=== PATIENT | female | born 1945 | race Asian ===

== ENCOUNTER 2018-06-15 14:51 | Emergency (ER) | payer MEDICARE, OTHER ==
[2018-06-15 15:35] LABS: ABSOLUTE BASOPHILS # (AUTO) 0.1 10^3/uL (0.0-0.2); ABSOLUTE EOSINOPHILS # (AUTO) 0.2 10^3/uL (0.0-0.6); ABSOLUTE LYMPHOCYTES (AUTO) 1.7 10^3/uL (0.5-4.7); ABSOLUTE MONOCYTES (AUTO) 0.5 10^3/uL (0.1-1.4); ABSOLUTE NEUT (AUTO) 3.8 10^3/uL (1.7-8.2); BASOPHILS % (AUTO) 0.9 % (0-2); EOSINOPHILS % (AUTO) 3.2 % (0-6); HEMATOCRIT 38.3 % (36.0-47.0); HEMOGLOBIN 12.9 g/dL (12.0-15.5); LYMPHOCYTES % (AUTO) 27.2 % (13-45); MEAN CORPUSCULAR HEMOGLOBIN 30.4 pg (27.0-33.4); MEAN CORPUSCULAR HGB CONC 33.8 g/dL (32.0-36.0); MEAN CORPUSCULAR VOLUME 90 fl (80-97); MONOCYTES % (AUTO) 7.4 % (3-13); PLATELET COUNT 192 10^3/uL (150-450); RED BLOOD COUNT 4.26 10^6/uL (3.72-5.28); RED CELL DISTRIBUTION WIDTH 12.8 % (11.5-14.0); SEGMENTED NEUTROPHILS % (AUTO) 61.3 % (42-78); TOTAL CELLS COUNTED % (AUTO) 100 %; WHITE BLOOD COUNT 6.2 10^3/uL (4.0-10.5)
[2018-06-15 15:55] LABS: ALANINE AMINOTRANSFERASE 31 U/L (9-52); ALBUMIN 4.1 g/dL (3.5-5.0); ALKALINE PHOSPHATASE 88 U/L (38-126); ANION GAP 7 (5-19); ASPARTATE AMINO TRANSFERASE 28 U/L (14-36); BILIRUBIN,DIRECT 0.1 mg/dL (0.0-0.4); BILIRUBIN,TOTAL 0.8 mg/dL (0.2-1.3); BLOOD UREA NITROGEN 13 mg/dL (7-20); CALCIUM 9.8 mg/dL (8.4-10.2); CARBON DIOXIDE 27 mmol/L (22-30); CHLORIDE 104 mmol/L (98-107); GLUCOSE 124 mg/dL (75-110); POTASSIUM 4.1 mmol/L (3.6-5.0); TOTAL PROTEIN 6.3 g/dL (6.3-8.2)
[2018-06-15 15:56] LABS: ALCOHOL < 10 mg/dL (NONE DETECTED)
[2018-06-15 15:57] LABS: ACETAMINOPHEN < 10 ug/mL (10-30); SALICYLATE < 1.0 mg/dL (2.0-20.0)
--- NOTE | 2018-06-15 16:22 | ER Document Report ---
ED Psych Disorder / Suicide <TRUDY PELAEZ - Last Filed: 06/16/18 00:36> - General Mode of Arrival: Medic Information source: Patient, Friend TRAVEL OUTSIDE OF THE [place] IN LAST 30 DAYS: No <DEDRICK TORRES - Last Filed: 06/16/18 01:06> - General Chief Complaint: Overdose Stated Complaint: POSSIBLE OVERDOSE Time Seen by Provider: 06/15/18 14:58 Notes: Patient is a 73 year old female with depression, anxiety and diabetes presents to the emergency department via EMS due to an overdose. Patient states she took 50 Ambien tablets in attempt to commit suicide. Patient is a poor historian and does not provide much history. According to nurse, patient stated took the tablets this morning and proceeded to call her son in [place] who proceeded to call the police. Nurse also states the patient reported her dying approximately 4 years ago. According to friend at bedside, she is unaware of any prior history of suicide attempts with the patient. She states the patient does take a copious amount of regular medications. (DEDRICK TORRES) - Related Data Allergies/Adverse Reactions: No Known Allergies Allergy (Verified 06/15/18 14:52) Past Medical History - General Information source: Patient - Social History Smoking Status: Unknown if Ever Smoked Family History: Reviewed & Not Pertinent Patient has suicidal ideation: No Patient has homicidal ideation: No - Past Medical History Cardiac Medical History: Reports: Hx Hypertension Pulmonary Medical History: Endocrine Medical History: Reports: Hx Diabetes Mellitus Type 2 Musculoskeletal Medical History: Reports Hx Arthritis Psychiatric Medical History: Reports: Hx Anxiety, Hx Depression <DEDRICK TORRES - Last Filed: 06/16/18 01:06> Review of Systems - Review of Systems Constitutional: No symptoms reported EENT: No symptoms reported Cardiovascular: No symptoms reported Respiratory: No symptoms reported Gastrointestinal: No symptoms reported Genitourinary: No symptoms reported Female Genitourinary: No symptoms reported Musculoskeletal: No symptoms reported Skin: No symptoms reported Neurological/Psychological: See HPI -: Yes All other systems reviewed and negative <DEDRICK TORRES - Last Filed: 06/16/18 01:06> Physical Exam <DEDRICK TORRES - Last Filed: 06/16/18 01:06> - Vital signs Vitals: Temp Resp BP Pulse Ox 98.0 F 15 120/83 97 06/15/18 15:03 06/15/18 15:03 06/15/18 15:03 06/15/18 15:03 - Notes Notes: GENERAL:Somnolent, easily awakes howevers frequently drifts to sleep. No acute distress. HEAD: Normocephalic, atraumatic. EYES: Pupils equal, round, and reactive to light. Extraocular movements intact. ENT: Oral mucosa moist, tongue midline. NECK: Full range of motion. Supple. Trachea midline. LUNGS: Clear to auscultation bilaterally, no wheezes, rales, or rhonchi. No respiratory distress. Pulse ox reads 100% on room air, good wave form per my interpretation. HEART: Regular rate and rhythm. No murmurs, gallops, or rubs. ABDOMEN: Soft, non-tender. Non-distended. Bowel sounds present in all 4 quadrants. EXTREMITIES: Moves all 4 extremities spontaneously. No edema, radial and dorsalis pedis pulses 2/4 bilaterally. No cyanosis. NEUROLOGICAL: Somnolent. Oriented to self, oriented to date, states June 2018. Is aware she is in a medical facility, however she states "clinic". PSYCH: Somnolent. SKIN: Warm, dry, normal turgor. No rashes or lesions noted. (DEDRICK TORRES) Course - Laboratory Result Diagrams: 06/15/18 15:08 06/15/18 15:08 <TRUDY PELAEZ - Last Filed: 06/16/18 00:36> - Laboratory Result Diagrams: 06/15/18 15:08 06/15/18 15:08 <DEDRICK TORRES - Last Filed: 06/16/18 01:06> - Re-evaluation Re-evalutation: 06/15/18 16:49 Spoke with son Jayden Hall after getting permission from patient, . States this is her second suicide attempt, first was when son was in 5th grade, she slit her wrists, has not had an attempt since then. Jayden states that she has not gotten a lot of treatment for her depression. Her from ALS in October of 2012, son states she has been having a hard time dealing with this. Also states that her other son is an alcoholic who lives here in [facility]. States that her other son had recently gotten a new job but today she called her son Jayden who is states that the patient said her other son had started drinking again and that she just could not deal with this anymore and that was when she told him she had taken 50 Ativan tablets at which point her son Jayden hung up the phone and called 911. 06/15/18 16:57 Patient is on 24-hour hold after discussion with behavioral health. Paperwork has been filled out and placed on the chart. Patient has been intermittently hypotensive while sleeping, when she awakens her blood pressure normalizes, patient has also been given a liter of fluid normal saline IV. 06/16/18 00:36 CBC unremarkable, CMP unremarkable, salicylates, acetaminophen and alcohol are all undetectable, EKG is nonischemic. Patient is now able to carry on a steady conversation, blood pressure is intermittently low when she lays on her side but normalizes when you would occur up. Currently patient is medically clear, pat ient will be taken off the monitor and moved to the unmonitored side of the emergency department. (TRUDY PELAEZ) 06/15/18 16:30 Contacted poison control. Agrees with management, recommends 6 hours of observation. 06/15/18 16:45 Son called and provided his phone number. Patient gives permission for us to contact him. (DEDRICK TORRES) - Vital Signs Vital signs: Temp Pulse Resp BP Pulse Ox 98.0 F 18 94/58 L 97 06/15/18 15:03 06/16/18 00:16 06/16/18 00:16 06/16/18 00:16 - Laboratory Laboratory results interpreted by me: 06/15/18 15:08 Glucose 124 H Salicylates < 1.0 L Acetaminophen < 10 L - EKG Interpretation by Me Additional EKG results interpreted by me: 06/15/18 16:56 EKG shows sinus rhythm at a rate of 61, normal axis, normal intervals, no ST segment elevations or depressions, slight T wave flattening in aVL, no T wave inversions per my interpretation. (TRUDY PELAEZ) Discharge <TRUDY PELAEZ - Last Filed: 06/16/18 00:36> <DEDRICK TORRES - Last Filed: 06/16/18 01:06> - Discharge Clinical Impression: Suicide attempt Overdose Qualifiers: Encounter type: initial encounter Injury intent: intentional self-harm Qualified Code(s): T50.902A - Poisoning by unspecified drugs, medicaments and biological substances, intentional self-harm, initial encounter Condition: Stable Disposition: PSYCH HOSP/UNIT Referrals: BARBER SORIANO MD [Primary Care Provider] - Follow up as needed Scribe Documentation - Scribe Written by Scribe:: Jomar Pride, 06/15/2018 16:32 acting as scribe for :: Maureen <DEDRICK TORRES - Last Filed: 06/16/18 01:06>
[2018-06-15] MEDS ORDERED: NORMAL SALINE 1000 ML 1,000 ML IV ONE (16:23)
--- NOTE | 2018-06-15 21:48 | EKG REPORT ---
SEVERITY:- NORMAL ECG - SINUS RHYTHM : Confirmed by: Darius Bailey MD 15-Jun-2018 21:48:14
[2018-06-16] MEDS ORDERED: GABAPENTIN 300 MG CAPSULE PO ONE ×2 (01:09→08:00)
[2018-06-16] MEDS: LISINOPRIL 5 MG TABLET PO SCH (07:34)
[2018-06-16] MEDS: LOSARTAN POTASSIUM 25 MG TABLET PO SCH (07:34)
[2018-06-16] MEDS: SITAGLIPTIN PHOSPHATE 50 MG TABLET PO SCH (10:33)
[2018-06-16] MEDS: METFORMIN HCL 500 MG TABLET PO SCH (10:33)
[2018-06-16] MEDS: SIMVASTATIN 40 MG TABLET PO SCH (10:33)
--- NOTE | 2018-06-16 18:54 | ER Document Report ---
Doctor's Note Notes: 06/16/18 18:52 The patient's chart was reviewed. Pepe Simmons with the psychology team evaluated the patient today and after a lengthy discussion with the patient, we feel that she is still a threat to herself and would benefit from an inpatient psychiatric facility management until she can be stabilized and is no longer suicidal. She will be reevaluated tomorrow to determine if she still meets inpatient psychiatric management criteria.
[2018-06-17] MEDS: LOSARTAN POTASSIUM 25 MG TABLET PO SCH (08:40)
[2018-06-17] MEDS: LISINOPRIL 5 MG TABLET PO SCH (08:40)
--- NOTE | 2018-06-17 09:52 | ER Document Report ---
Doctor's Note Notes: 06/17/18 09:50 Rounds: Chart reviewed and patient interviewed. Patient is being evaluated for having taken an overdose of reportedly 50 ambiens. Patient says that she is been depressed and suffering from anxiety. Her about 4 months ago. Patient says she is feeling much better this morning. Does not feel suicidal at this time. Vital signs are all essentially normal. Lab studies were all essentially normal. Patient appears to be medically stable for transfer or discharge. Chilango Patino MD
[2018-06-17] MEDS: SITAGLIPTIN PHOSPHATE 50 MG TABLET PO SCH (10:22)
[2018-06-17] MEDS: METFORMIN HCL 500 MG TABLET PO SCH (10:23)
[2018-06-17] MEDS: SIMVASTATIN 40 MG TABLET PO SCH (10:23)
[2018-06-17 12:00] VITALS: BP 111/51
== END 2018-06-17 12:10 ==
LOC: ER 14:51
DX: T50.902A Poisoning by unspecified drugs, medicaments and biological substances, intentional self-harm, initial encounter (principal); T42.6X2A Poisoning by other antiepileptic and sedative-hypnotic drugs, intentional self-harm, initial encounter; F32.9 Major depressive disorder, single episode, unspecified; F41.9 Anxiety disorder, unspecified; E11.9 Type 2 diabetes mellitus without complications; I10 Essential (primary) hypertension
CPT/HCPCS: 93005; 99285; 96360; 36415; 82962; 80307 ×3; 85025; 80053; 93010; A9270 ×11; J7030

== ENCOUNTER → 2019-04-17 | Outpatient (CLI) | payer MEDICARE, OTHER ==
--- NOTE | 2019-04-17 11:52 | WOMENS IMAGING REPORT ---
EXAM DESCRIPTION: 3D DX MAMMO BILAT; U/S BREAST UNILAT LIMITED COMPLETED DATE/TIME: 04/17/2019 9:08 am; 04/17/2019 9:09 am REASON FOR STUDY: RT BREAST MASS N63.10; RT BREAST US N63.10 Z12.31 ENCNTR SCREEN MAMMOGRAM FOR MAL IGNANT NEOPLASM OF TIFFANIE COMPARISON: 2009, 2010 EXAM PARAMETERS: Standard craniocaudal and mediolateral oblique views of each breast recorded using digital acquisition and breast tomosynthesis. Right breast exaggerated craniocaudad mammogram and tomosynthesis, additional right breast 90 mediol ateral mammogram. Right breast and axilla ultrasound was also performed. Read with the assistance of CAD: .[employer] - [employer] Version 9.2 LIMITATIONS: None. FINDINGS: RIGHT BREAST MASSES: In the tail of Suarez about 15 to 17 cm from the nipple right far upper outer quadrant, an 8 ill-defined mammographic mass is present 3 x 2 cm in size with partial border loss. This was subsequ ently shown at ultrasound to represent a solid hypoechoic mass with ill-defined margins and internal color flow, suspicious for malignancy. CALCIFICATIONS: No new or suspicious calcifications. ARCHITECTURAL DISTORTION: None. ASYMMETRY: None noted. OTHER: No other significant findings. LEFT BREAST MASSES: No suspicious masses. CALCIFICATIONS: No new or suspicious calcifications. ARCHITECTURAL DISTORTION: None. ASYMMETRY: None noted. OTHER: No other significant finding. Right breast and axilla ultrasound: In the far upper outer quadrant right breast 10 to 11 o'clock position, a 3 x 2 cm hypoechoic solid m ass is present with partial border loss and irregular margins. Internal color flow. There is acoust ic shadowing. This is highly suspicious for malignancy. Ultrasound-guided core biopsy, post biopsy clip placement and follow-up two-view mammogram recommended. Right axilla was examined with ultrasound. No enlarged lymph nodes are identified. IMPRESSION: No mammographic/ tomosynthesis evidence for malignancy left breast Right breast far upper outer quadrant tail of Suarez 3 x 2 cm solid mass worrisome for malignancy. U ltrasound-guided core biopsy, post biopsy clip placement and follow-up two-view mammogram recommended . BREAST DENSITY: b. There are scattered areas of fibroglandular density. BIRAD: ASSESSMENT: 5 Highly suggestive of malignancy. Biopsy should be performed in the absence of clinical contra-indication. RECOMMENDATION: RECOMMENDED FOLLOW UP: Ultrasound-guided right breast biopsy with post biopsy clip p lacement and follow-up two-view mammogram. SPECIFIC INTERVENTION/IMAGING/CONSULTATION RECOMMENDED:Ultrasound-guided right breast biopsy with pos t biopsy clip placement and follow-up two-view mammogram COMMUNICATION:Patient notified by letter. Results were not discussed with the patient at the time of service COMMENT: The patient has been notified of the results by letter per SA requirements. Additional no tification policies are in place for contacting patient with suspicious or incomplete findings. Quality ID #[id number]: The [employer] recommends an annual screening mammogram for women aged 40 years or over. This facility utilizes a reminder system to ensure that all patients receive reminder letters, and/or direct phone calls for appointments. This includes reminders for routine scr eening mammograms, diagnostic mammograms, or other Breast Imaging Interventions when appropriate. Th is patient will be placed in the appropriate reminder system. TECHNICAL DOCUMENTATION: FINDING NUMBER: (1) ASSESSMENT: (1) JOB ID: [id number] [employer]- All Rights Reserved Reading location - IP/workstation name: [email or web address]
== END ==
LOC: WI 08:10
PROVIDERS: ATTEND Physician Assistant
DX: N63.11 Unspecified lump in the right breast, upper outer quadrant (principal)
CPT/HCPCS: 76642; 77066; G0279; 77062

== ENCOUNTER 2019-05-14 08:22 | Observation (INO) | payer MEDICARE, OTHER ==
[2019-05-09 12:42] LABS: MEAN CORPUSCULAR HEMOGLOBIN 30.3 pg (27.0-33.4); MEAN CORPUSCULAR HGB CONC 34.1 g/dL (32.0-36.0); MEAN CORPUSCULAR VOLUME 89 fl (80-97); PLATELET COUNT 181 10^3/uL (150-450); RED BLOOD COUNT 4.27 10^6/uL (3.72-5.28); RED CELL DISTRIBUTION WIDTH 12.5 % (11.5-14.0)
--- NOTE | 2019-05-09 13:00 | EKG REPORT ---
SEVERITY:- NORMAL ECG - SINUS RHYTHM : Confirmed by: Lydia Modi MD 09-May-2019 13:00:27
[2019-05-09 13:15] LABS: ANION GAP 7 (5-19); BLOOD UREA NITROGEN 15 mg/dL (7-20); CALCIUM 9.7 mg/dL (8.4-10.2); CARBON DIOXIDE 31 mmol/L (22-30); CHLORIDE 102 mmol/L (98-107); GLUCOSE 108 mg/dL (75-110); POTASSIUM 4.9 mmol/L (3.6-5.0)
[~2019-05-14 08:22] MED LIST: CEFAZOLIN SODIUM 1 GM in DEXTROSE 5%-WATER 50 ML IV PRN; LACTATED RINGERS 1000 ML IV PRN
[2019-05-14] MEDS ORDERED: LIDOCAINE 4% TRANSPARENT DRESSING 5 GM KIT TP PRN (08:37)
[2019-05-14] MEDS ORDERED: LIDOCAINE 4% TRANSPARENT DRESSING 5 GM KIT ONE (09:04)
[2019-05-14] MEDS ORDERED: SUCCINYLCHOLINE CHLORIDE INJ 200 MG/10 ML VIAL ONE (12:04)
[2019-05-14] MEDS ORDERED: PROPOFOL INJ 200 MG/20 ML VIAL IV ONE (12:44)
[2019-05-14] MEDS ORDERED: FENTANYL CITRATE INJ/PF 250 MCG/5 ML AMPULE ONE (12:44)
[2019-05-14] MEDS ORDERED: ONDANSETRON HCL INJ/PF 4 MG/2 ML SDV ONE (12:44)
[2019-05-14] MEDS ORDERED: DEXAMETHASONE SOD PHOSPHATE INJ 4 MG/1 ML VIAL ONE (12:44)
[2019-05-14] MEDS ORDERED: MIDAZOLAM 2 MG/2 ML INJ ONE (12:44)
[2019-05-14] MEDS ORDERED: MICROFIBRILLAR COLLAGEN 1 GM PACK ONE (12:45)
[2019-05-14] MEDS ORDERED: LIDOCAINE 1%/EPINEPHRINE INJ 20 ML VIAL ONE (12:45)
[2019-05-14] MEDS ORDERED: METHYLENE BLUE 50 MG/10 ML AMPULE ONE (13:10)
[2019-05-14] MEDS ORDERED: FENTANYL CITRATE INJ/PF 100 MCG/2 ML AMPUL IV PRN (14:23)
[2019-05-14] MEDS ORDERED: MORPHINE SULFATE 10 MG/ML INJ IV PRN (14:23)
[2019-05-14] MEDS ORDERED: PROMETHAZINE HCL INJ 25 MG/1 ML VIAL IV PRN (14:23)
[2019-05-14] MEDS ORDERED: DIPHENHYDRAMINE HCL 50 MG/ML VIAL IV PRN (14:23)
[2019-05-14] MEDS ORDERED: MEPERIDINE HCL/PF INJ 25 MG/1 ML DISP.SYRIN IV PRN (14:23)
--- NOTE | 2019-05-14 14:53 | RADIOLOGY REPORT (SQ) ---
EXAM DESCRIPTION: NM LYMPHATICS/LYMPH GLANDS COMPLETED DATE/TIME: 05/14/2019 10:53 am REASON FOR STUDY: RT BREAST CANCER C50.911 MALIGNANT NEOPLASM OF UNSP SITE OF RIGHT FEMALE PREETHI Z79 .899 OTHER RESIDENTIAL (CURRENT) DRUG THERAPY COMPARISON: None. RADIONUCLIDE AND DOSE: 0.629 microcuries TC-99m tilmanocept - [employer]. The route of agent administration: Subcutaneous in the skin. TECHNIQUE: The skin of the right breast was prepped in sterile fashion. The radiopharmaceutical was then administered in equally divided doses in the periareolar breast. LIMITATIONS: None. FINDINGS: Images demonstrate radioactivity at the injection sites. IMPRESSION: ADMINISTRATION OF RADIOPHARMACEUTICAL FOR SENTINEL LYMPH NODE EVALUATION. TECHNICAL DOCUMENTATION: JOB ID: [id number] [employer]- All Rights Reserved Reading location - IP/workstation name: [email or web address]
[2019-05-14] MEDS ORDERED: KETOROLAC TROMETHAMINE 10 MG TABLET PO PRN (15:09)
[2019-05-14] MEDS ORDERED: OXYCODONE-ACETAMINOPHEN 5-325 MG TABLET PO PRN (15:09)
--- NOTE | 2019-05-14 15:16 | Operative Report ---
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 Bedside neoprobe assessment confirmed uptake in the right axilla consistent with successful mapping. The patient was taken to the operating room and general anesthesia was induced. Right arm was abducted, right breast exposed, and the upper outer quadrant of the areolar border was injected with 3 cc of dilute methylene blue. Breast was massaged, then the right breast and axilla were prepped and draped in sterile fashion a. Surgical plan and surgical timeout were conducted. Markings were made on the skin for planned right mastectomy. Incision was made with a #10 blade, and superior and inferior skin flaps were raised of appropriate thickness. The superior flap was taken up to the subclavicular area, medially to the parasternal musculature, and inferiorly to the serratus anterior muscle. The breast was taken off of the chest wall including the pectoralis major fascia. Edmond lymph node biopsy was now performed. 3 hot sentinel lymph nodes were removed from level 1 axilla. The first lymph node had an in vivo count of 21 396 and an ex vivo count of 9392. The second lymph node in the same vicinity had an in vivo count of 3632 and the third sentinel lymph node had an in vivo count of 9231 with an ex vivo count of 6100. Background counts were negligible. All sentinel lymph nodes were sent for permanent analysis. Hemostasis was felt to be achieved. A large Mohit drain was placed through the lateral inferior aspect of the inferior skin flap, attached to the skin with 2-0 Prolene suture, and the drain placed in the recess of the mastectomy wound. The incision was closed with multiple running 2-0 Vicryl sutures and skin glue. Sponge and needle counts are correct. Patient tolerated procedure well, extubated, taken recovery in stable condition.
[2019-05-14] MEDS ORDERED: ACETAMINOPHEN INJ/PF 1000 MG/100 ML SDV IV SCH (18:00)
[2019-05-14] MEDS: DOCUSATE SODIUM 100 MG CAPSULE PO SCH (18:23)
[2019-05-14] MEDS: ACETAMINOPHEN 1,000 MG/100 ML RTUPB IV SCH (18:24)
[2019-05-15] MEDS: ACETAMINOPHEN 1,000 MG/100 ML RTUPB IV SCH ×2 (02:22→06:46)
[2019-05-15] MEDS ORDERED: INFLUENZA QUAD (6MOS+) 2019-20 VAC 0.5 ML SYR IM ONE (07:54)
[2019-05-15] MEDS: DOCUSATE SODIUM 100 MG CAPSULE PO SCH (09:59)
--- NOTE | 2019-05-15 10:46 | PDOC DISCHARGE SUMMARY ---
General - Admit/Disc Date/PCP Admission Date/Primary Care Provider: 05/14/19 15:30 BARBER SORIANO MD Discharge Date: 05/15/19 - Discharge Diagnosis Final Diagnosis: Invasive ductal carcinoma, right breast - Assessment Summary: Patient is 74-year-old female with a right breast mass, status post core biopsy with diagnosis of infiltrating ductal carcinoma, cribriform variety. Patient was brought to ambulatory surgery for right mastectomy, sentinel node biopsy and chest wall drainage. She tolerated procedure well without complication. The following morning she was getting about well, tolerating diet, and had adequate pain control. She was felt ready for discharge home after instructions on drain management. - Additional Information Resuscitation Status: Full Code Discharge Diet: As Tolerated Discharge Activity: No Lifting Over 10 Pounds, No Lifting/Push/Pulling - Patient instructed on drain management and output recording. She is prescribed Toradol, and prescription provided. She will follow-up with [facility] in 1 week for postop check. Referrals: BARBER SORIANO MD [Primary Care Provider] - WILLARD PAREKH MD [ACTIVE STAFF] - 05/22/19 1:15 pm (PLEASE CALL THE OFFICE FOR ANY QUESTIONS OR CONCERNS.) Home Medications: Aspirin [Ecotrin 81 mg EC Tablet] 81 mg PO DAILY 10/24/12 Gabapentin [Gralise] 300 mg PO DAILY 10/24/12 Glipizide [Glocotrol 5 Mg Tablet] 5 mg PO DAILY 10/24/12 Ibuprofen [Motrin 800 Mg Tablet] 800 mg PO PRN PRN 10/24/12 Metformin HCl [Glumetza ER 500 mg Tablet] 500 mg PO BID 10/24/12 Simvastatin [Zocor 40 mg Tablet] 40 mg PO QHS 10/24/12 Lisinopril [Prinivil 5 Mg Tablet] 5 mg PO DAILY 10/29/12 History of Present Illiness History of Present Illness: MARILUZ LAUREN is a 74 year old female Physical Exam Vital Signs: Temp Pulse Resp BP Pulse Ox 97.7 F 61 16 98/46 L 98 05/15/19 07:32 05/15/19 07:32 05/15/19 07:32 05/15/19 07:32 05/15/19 07:32 Intake & Output 05/14/19 05/15/19 05/16/19 06:59 06:59 06:59 Intake Total 2250 100 Output Total 821 Balance 1429 100 Weight 83 kg Results Laboratory Results: WBC 6.0 10^3/uL (4.0-10.5) 05/09/19 11:30 RBC 4.27 10^6/uL (3.72-5.28) 05/09/19 11:30 Hgb 13.0 g/dL (12.0-15.5) 05/09/19 11:30 Hct 38.0 % (36.0-47.0) 05/09/19 11:30 MCV 89 fl (80-97) 05/09/19 11:30 MCH 30.3 pg (27.0-33.4) 05/09/19 11:30 MCHC 34.1 g/dL (32.0-36.0) 05/09/19 11:30 RDW 12.5 % (11.5-14.0) 05/09/19 11:30 Plt Count 181 10^3/uL (150-450) 05/09/19 11:30 Sodium 140.0 mmol/L (137-145) 05/09/19 11:30 Potassium 4.9 mmol/L (3.6-5.0) 05/09/19 11:30 Chloride 102 mmol/L (98-107) 05/09/19 11:30 Carbon Dioxide 31 mmol/L (22-30) H 05/09/19 11:30 Anion Gap 7 (5-19) 05/09/19 11:30 BUN 15 mg/dL (7-20) 05/09/19 11:30 Creatinine 0.81 mg/dL (0.52-1.25) 05/09/19 11:30 Est GFR ( Amer) > 60 (>60) 05/09/19 11:30 Est GFR (MDRD) Non-Af > 60 (>60) 05/09/19 11:30 Glucose 108 mg/dL (75-110) 05/09/19 11:30 POC Glucose 88 mg/dL (70-110) 05/14/19 10:46 Calcium 9.7 mg/dL (8.4-10.2) 05/09/19 11:30 Impressions: Lymph Scan Nuclear Medicine 05/14/19 00:00 IMPRESSION: ADMINISTRATION OF RADIOPHARMACEUTICAL FOR SENTINEL LYMPH NODE EVALUATION.
[2019-05-15 10:52] VITALS: BP 140/59
== END 2019-05-15 11:10 | disposition home or self-care (01) ==
LOC: OROUT 08:22 → 2N 15:30
PROVIDERS: ADMIT Surgery; ATTEND Surgery
DX: C50.411 Malignant neoplasm of upper-outer quadrant of right female breast (principal); C50.111 Malignant neoplasm of central portion of right female breast; Z17.0 Estrogen receptor positive status [ER+]; E11.9 Type 2 diabetes mellitus without complications; I10 Essential (primary) hypertension; E78.00 Pure hypercholesterolemia, unspecified; Z79.899 Other long term (current) drug therapy; Z79.82 Long term (current) use of aspirin; Z01.818 Encounter for other preprocedural examination
CPT/HCPCS: 93005; 36415; 82962; 85027; 80048; 88342 ×2; 88341 ×2; 88307 ×2; 78195; 93010; 01610; 19307; A9520; J2250; J0690; J1100; A9270 ×3; J3010; J3490; J0330; J2405; J7060; J2704; J0131 ×2; Q9968; 1610

== ENCOUNTER → 2019-08-18 | Outpatient (CLI) | payer MEDICARE, OTHER ==
--- NOTE | 2019-08-18 09:05 | WOMENS IMAGING REPORT ---
EXAM DESCRIPTION: BONE DENSITY HIP/SPINE COMPLETED DATE/TIME: 08/18/2019 8:38 am REASON FOR STUDY: Z78.0 BONE DENSITY Z78.0 ASYMPTOMATIC MENOPAUSAL STATE COMPARISON: None. TECHNIQUE: Dual-Energy X-ray Absorptiometry (DEXA) of the AP Spine and Hip. LIMITATIONS: None. FINDINGS: LUMBAR SPINE: The bone mineral density (BMD) measured from L1-L4 in the AP projection correlates with a T-score of 1.9, which is normal as defined by the World Health Organization. HIP: The bone mineral density (BMD) measured in the left hip correlates with a T-score of 0.3, which is no rmal as defined by the World Health Organization. IMPRESSION: 1. LUMBAR SPINE: NORMAL. 2. HIP: NORMAL. COMMENT: The World Health Organization defines low BMD as follows: T-score: Normal: Greater than -1.0 Osteopenia: Between -1.0 and -2.5 Osteoporosis: Less than -2.5 without fractures Established osteoporosis: Less than -2.5 with fractures In general, you may wish to consider: Diagnosis Treatment Follow-up DEXA Normal BMD Prevention 2-3 years Osteopenia Prevention/Therapy 1-2 years Osteoporosis Therapy Yearly TECHNICAL DOCUMENTATION: JOB ID: [id number] [employer]- All Rights Reserved Reading location - IP/workstation name: [email or web address]
== END ==
LOC: WI 07:55
PROVIDERS: ATTEND Physician Assistant
DX: Z78.0 Asymptomatic menopausal state (principal)
CPT/HCPCS: 77080